=== PATIENT | female | born 1990 | race Caucasian/White ===

== ENCOUNTER 2018-04-17 16:14 | Emergency (ER) | payer MEDICAID ==
[~2018-04-17] VITALS: Ht 172.7 cm; Wt 62.6 kg
[2018-04-17 16:19] VITALS: BP 101/58
[2018-04-17] MEDS ORDERED: CEPHALEXIN500 MG ORAL (16:39)
[2018-04-17 16:58] LABS: APPEARANCE,URINE VERY CLOUDY; BILIRUBIN, URINE NEGATIVE (NEGATIVE); COLOR,URINE YELLOW; GLUCOSE, URINE (UA) NEGATIVE (NEGATIVE); KETONES,URINE NEGATIVE (NEGATIVE); LEUKOCYTE ESTERASE ,URINE 3+ (NEGATIVE); NITRITE,URINE POSITIVE (NEGATIVE); PH,URINE 6 (4.5-8.0); PROTEIN,URINE 4+ (NEGATIVE); UROBILINOGEN,URINE NORMAL MG/DL (0.0-1.0)
--- NOTE | 2018-04-17 17:16 | Emergency Room Report ---
History of Present Illness General Chief Complaint: Complications Source: Patient Present Illness HPI Patient is a 27-year-old female presented after increased abdominal cramping. The patient denied any bleeding. She reported having normal movement. She denied any leakage of fluid. She denied any fever. She reports having increased dysuria. Patient states she had not been vomiting excessively. She denies any increased pain with ambulation. The patient is approximately 22 weeks .She reports having some recent diarrhea. Allergies: Coded Allergies: No Known Allergies (Unverified , 04/17/18) Patient History Past Medical History: see triage record Now: Yes : 4 Para: 2 Reviewed Nursing Documentation: PMH: Agreed; PSxH: Agreed Nursing Documentation-PMH Past Medical History: No History, Except For Hx Asthma: Yes Review of Systems All Other Systems: negative except mentioned in HPI Physical Exam Vital Signs Date Time Temp Pulse Resp B/P (MAP) Pulse Ox O2 Delivery O2 Flow Rate FiO2 04/17/18 16:19 97.3 66 16 101/58 96 Room Air General Appearance: normal inspection, well appearing, no apparent distress, alert, GCS 15 Head: normocephalic, atraumatic ENT: hearing grossly normal, normal voice Neck: full range of motion, supple Respiratory: normal inspection, no respiratory distress, speaking full sentences Gastrointestinal: soft, other - gravid uterus Musculoskeletal: normal inspection, no calf tenderness Neurologic: normal inspection, alert, oriented x3, responsive, competitive athlete III-XII nml as tested, normal gait Psychiatric: mood/affect normal Skin: no rash Medical Decision Making Diagnostic Impression: Primary Impression: Abdominal pain Additional Impression: Urinary tract infection ER Course Patient presented for abdominal pain. Differential diagnoses included ischemic bowel, appendicitis, perforated viscus, abdominal aortic aneurysm, inferior myocardial infarction, viral gastroenteritis Patient has a benign exam and does not appear to require any further imaging or laboratory testing at this time. The patient was noted to have no evidence of uterine contractions on the emergency department. The bedside ultrasound was performed which showed adequate heart tones and active fetus. The patient was advised to follow-up with labor and delivery for heart monitoring as well as the uterine monitoring. The patient's urine appears to be somewhat infected and patient was given prescription for Keflex. The patient does not appear to be toxic at this time. 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 Labs Test 04/17/18 16:30 Urine Color Yellow Urine Appearance Very cloudy Urine pH 6 (4.5-8.0) Urine Specific [place] 1.020 (1.005-1.035) Urine Protein 4+ (NEGATIVE) Urine Glucose (UA) Negative (NEGATIVE) Urine Ketones Negative (NEGATIVE) Urine Blood 2+ (NEGATIVE) Urine Nitrite Positive (NEGATIVE) Urine Bilirubin Negative (NEGATIVE) Urine Urobilinogen Normal MG/DL (0.0-1.0) Urine Leukocyte Esterase 3+ (NEGATIVE) Urine RBC 10-15 /HPF (0 - 2) Urine WBC Tntc /HPF (0 - 2) Urine Squamous Epithelial Cells Moderate /LPF (NONE/OCC) Urine Bacteria Many /HPF (NONE) Last Vital Signs Date Time Temp Pulse Resp B/P (MAP) Pulse Ox O2 Delivery O2 Flow Rate FiO2 04/17/18 16:45 97.4 66 16 101/58 96 Room Air Status: improved Disposition: HOME, SELF-CARE Condition: Stable Scripts Cephalexin* (KEFLEX*) 500 Mg Capsule 500 MG ORAL EVERY 6 HOURS, #40 CAP Prov: Derik Guzman MD 04/17/18 Referrals: NON PHYSICIAN (PCP) Patient Instructions: Abdominal Pain During , [id number] Additional Instructions: Follow up with labor and delivery for uterine monitoring recheck of urinary symptoms. Derik Guzman MD Apr 17, 2018 17:16
== END 2018-04-17 16:45 | disposition home or self-care (01) ==
LOC: EMR 16:30
DX: O23.42 Unspecified infection of urinary tract in pregnancy, second trimester (principal); Z3A.21 21 weeks gestation of pregnancy; O26.899 Other specified pregnancy related conditions, unspecified trimester; J45.909 Unspecified asthma, uncomplicated
CPT/HCPCS: 81003; 87086; 87181; 99283